=== PATIENT | female | born 1990 | race Two or more races ===

== ENCOUNTER 2018-01-16 21:46 | Emergency (ER) | payer OTHER ==
[~2018-01-16] VITALS: Ht 160 cm; Wt 45.4 kg
[2018-01-17] MEDS ORDERED: CELEBREX200MG PO (05:30)
[2018-01-17] MEDS ORDERED: PERCOCET 5-3251 EACH PO (05:30)
== END 2018-01-17 05:28 | disposition home or self-care (01) ==
LOC: ER 21:46
DX: N83.291 Other ovarian cyst, right side (principal)

== ENCOUNTER 2018-08-20 21:22 | Emergency (ER) | payer OTHER ==
[~2018-08-20] VITALS: Ht 160 cm; Wt 45.4 kg
[~2018-08-20 21:22] MED LIST: CELEBREX200MG PO; PERCOCET 5-3251 EACH PO
== END 2018-08-20 22:12 | disposition home or self-care (01) ==
LOC: ER 21:22
DX: N64.4 Mastodynia (principal)

== ENCOUNTER 2018-09-07 18:12 | Emergency (ER) | payer OTHER ==
[~2018-09-07] VITALS: Ht 160 cm; Wt 45.4 kg
== END 2018-09-07 22:29 | disposition home or self-care (01) ==
LOC: ER 18:12
DX: R42 Dizziness and giddiness (principal); R10.13 Epigastric pain; G44.209 Tension-type headache, unspecified, not intractable

== ENCOUNTER → 2023-06-26 | Emergency (ER) | payer OTHER ==
[~2023-06-26] VITALS: Ht 160 cm; Wt 45.4 kg
== END | disposition left against medical advice (07) ==
LOC: ER 23:09
DX: Z53.21 Procedure and treatment not carried out due to patient leaving prior to being seen by health care provider (principal)